=== PATIENT | female | born 1955 | race Caucasian/White ===

== ENCOUNTER → 2019-03-23 | Outpatient (CLI) | payer OTHER ==
[~2019-03-23] MED LIST: FEXOFENADINE PO; MULVITMIND PO; RANI150 PO; Vitamin C100 M1 PO; Zofran Odt8 MG PO
[2019-03-25 16:06] LABS: HPV 16 Negative (Negative); HPV 18 Negative (Negative); HPV OTHER HR TYPES Negative (Negative)
== END | disposition home or self-care (01) ==
LOC: LAB 17:19 → LAB SHORT 17:19
PROVIDERS: Obstetrics & Gynecology Gynecology
DX: Z12.4 Encounter for screening for malignant neoplasm of cervix (principal)
CPT/HCPCS: 87624; G0123

== ENCOUNTER 2019-05-06 06:36 | Day surgery (SDC) | payer OTHER ==
[~2019-05-06] VITALS: Ht 162.6 cm; Wt 69.0 kg
[~2019-05-06 06:36] MED LIST changes: +CHOL10002 PO; +OMEG1CAP30 PO
--- NOTE | 2019-05-06 07:55 | NUR ---
05/06/19 0[address]my [address]iles DISCUSSION WITH DR SIU REGARDING PATIENT PRIOR PROCEDURE AND HAVING DIFFICULTY AFTERWARDS. PATIENT EXPRESSED TO ME HER BIGGEST PROBLEM WAS HER SORE THROAT AND FEELING OVER MEDICATED FOR A WEEK POST PROCEDURE. SHE WAS AWARE THAT SHE DID VOMIT DURING PROCEDURE. DR SIU ORDERED ZOFRAN GIVEN AT BEGINNING OF PROCEDURE TO HELP AVOID VOMITING. I EXPLAINED AT LENGTH TO PATIENT THAT PROPOFOL METABOLIZES VERY FAST AND IT COULD BE JUST DUE TO LENGTH OF PROCEDURE AND DIFFICULT POLYP REMOVAL THAT SHE HAD SOME DIFFICULTIES. ALL OF PATIENTS QUESTIONS WERE ANSWERED. WILL PROCEED WITH PROCEDURE USING PROPOFOL SEDATION
== END 2019-05-06 08:57 | disposition home or self-care (01) ==
LOC: ORSCSDS 06:36
PROVIDERS: Surgery
PROC: 0DBN8ZX Excision of Sigmoid Colon, Via Natural or Artificial Opening Endoscopic, Diagnostic (ICD-10-PCS; principal; 2019-05-06 08:00)
DX: Z12.11 Encounter for screening for malignant neoplasm of colon (principal); Z86.010 Personal history of colon polyps; D12.5 Benign neoplasm of sigmoid colon; K57.30 Diverticulosis of large intestine without perforation or abscess without bleeding; K21.9 Gastro-esophageal reflux disease without esophagitis; I10 Essential (primary) hypertension; Z87.891 Personal history of nicotine dependence; Z79.899 Other long term (current) drug therapy
CPT/HCPCS: 88305; J2405; J2704; J7120

== ENCOUNTER 2025-08-24 11:31 | Observation (INO) | payer MEDICARE ==
[~2025-08-24] VITALS: Ht 162.6 cm; Wt 65.8 kg
[2025-08-24] VITALS (11 sets, daily range): BP systolic 128–145; BP diastolic 65–80
[2025-08-24 12:02] LABS: BASOPHILS ABSOLUTE AUTO 0.03 K/mm3 (0.00-0.23); BASOPHILS PERCENT AUTO 0 % (0-2); EOSINOPHILS ABSOLUTE AUTO 0.04 K/mm3 (0.00-0.68); EOSINOPHILS PERCENT AUTO 0 % (0-6); Hematocrit 44.6 % (33.0-51.0); Hemoglobin 15.6 g/dL (11.5-16.0); IMMATURE GRAN ABSOLUTE AUTO 0.05 K/mm3 (0.00-0.10); IMMATURE GRAN PERCENT AUTO 0 % (0-1); LYMPHOCYTES ABSOLUTE AUTO 1.27 K/mm3 (0.84-5.20); LYMPHOCYTES PERCENT AUTO 9 % (21-46); MONOCYTES ABSOLUTE AUTO 0.76 K/mm3 (0.16-1.47); MONOCYTES PERCENT AUTO 6 % (4-13); Mean Corpuscular HGB Conc 35.0 g/dL (31.5-36.5); Mean Corpuscular Volume 86 fL (80-100); NEUTROPHILS ABSOLUTE AUTO 11.43 K/mm3 (1.96-9.15); NEUTROPHILS PERCENT AUTO 84 % (41-73); NRBC ABSOLUTE 0.00 K/mm3 (0.00-0.02); NRBC Auto 0.0 /100 WBC (0.0-0.2); Platelet Count 375 K/mm3 (150-400); RDW Coefficient Variation 12.8 % (11.7-14.2); RDW Standard Deviation 39.9 fL (35.1-46.3)
[2025-08-24] MEDS ORDERED: Morphine Sulfate 4 MG/1 ML Injection IV ONE (12:10)
[2025-08-24] MEDS ORDERED: NS 1,000 ML IV SCH (12:10)
[2025-08-24] MEDS ORDERED: Ondansetron HCl 2 MG / ML 2ML Vial IV ONE ×2 (12:10→14:20)
[2025-08-24 12:25] LABS: Alanine Aminotransfer (ALT/SGP 32.0 U/L (12-78); Albumin, Blood 4.1 g/dL (3.4-5.0); Albumin/Globulin Ratio 1.0 (0.8-1.8); Anion Gap 13.0 mmol/L (3-11); Aspartate Aminotrans (AST/SGOT 25.0 U/L (12-37); Bilirubin, Total 0.6 mg/dL (0.1-1.0); Blood Urea Nitrogen 12.0 mg/dL (8-24); CO2, Blood 24.0 mmol/L (21-32); Calcium, Blood 9.5 mg/dL (8.5-10.1); Chloride, Blood 100.0 mmol/L (98-108); Creatinine, Blood 0.73 mg/dL (0.40-1.00); Globulin, Blood 4.2 g/dL (2.2-4.0); Glucose, Blood 135.0 mg/dL (70-99); Potassium, Blood 3.7 mmol/L (3.5-5.5); Sodium, Blood 133.0 mmol/L (136-145); Total Protein, Blood 8.3 g/dL (6.4-8.2)
[2025-08-24] MEDS ORDERED: Midazolam HCl 1MG / ML 2ML Vial ONE (14:10)
[2025-08-24] MEDS ORDERED: Bupivacaine 0.5% HCl 5 MG/ML 30MLVIAL ONE (14:10)
[2025-08-24] MEDS ORDERED: FentaNYL Citrate 50 MCG/ML 2 ML Injection ONE (14:11)
[2025-08-24] MEDS ORDERED: Rocuronium Bromide 10 MG/ML 5ML Injection IV ONE (14:11)
[2025-08-24] MEDS ORDERED: FentaNYL Citrate 50 MCG/ML 2 ML Injection IV PRN ×3 (14:15→14:55)
[2025-08-24] MEDS ORDERED: FLU VACC TS2025(65UP)/MF59C/PF 45 MCG/0.5 ML SYRINGE IM SCH (14:15)
[2025-08-24] MEDS ORDERED: Ondansetron HCl 2 MG / ML 2ML Vial IV PRN (14:20)
[2025-08-24] MEDS ORDERED: HYDROcodone 5-APAP 325 TAB PO PRN (14:20)
[2025-08-24] MEDS ORDERED: Ondansetron HCl 2 MG / ML 2ML Vial ONE (14:23)
[2025-08-24] MEDS ORDERED: CeFAZolin Sodium 2,000 MG in NS 100 ML IV SCH (14:25)
[2025-08-24] MEDS ORDERED: Dexamethasone Sod Phos 10 MG/ML 1ML VIAL ONE (14:46)
[2025-08-24] MEDS ORDERED: ePHEDrine Sulfate 50 MG/ML 1ML Injection ONE (14:52)
[2025-08-24] MEDS ORDERED: Albuterol 2.5 MG/3 ML VIAL INH PRN (14:55)
[2025-08-24] MEDS ORDERED: HYDROmorphone HCl/Pf 1MG SYR IV PRN ×2 (14:55)
[2025-08-24] MEDS ORDERED: Prochlorperazine Edisylate 10 mg Vial IV PRN (14:55)
[2025-08-24] MEDS ORDERED: HYDROmorphone HCl/Pf 1MG SYR ONE (15:07)
[2025-08-24] MEDS ORDERED: Sugammadex Sodium 200 MG/2ML SDV (100 MG/ML) ONE (15:49)
--- NOTE | 2025-08-24 18:12 | NUR ---
PT ARRIVED IN THE ROOM 231 FROM PACU POST HERNIA AND SBO REPAIR. PT HAS DRESSING ON LEFT GROIN CDI. ABD TENDER TO TOUCH. PT WAS TRANSFERRED VIA SLIDE SHEET. VITALS STABLE. SBP 140'S, SATS ABOVE 95% ON RA, AFEBRILE. PT WAS NAUSEATED DURING TRANSFER FROM PACU. PT WAS GIVEN COMPAZINE PER MELT SUPERINTENDANT. PT NOW SETTLED IN BED NAUSEA HAS GOTTEN BETTER. SIGNIFICANT OTHER AT THE BEDSIDE AWARE OF THE PLAN OF CARE. LR RUNNING AT 100MLS/HR. PT ON CLEAR LIQUID DIET, HAD A LITTLE SIP OF WATER TOLERATING WELL. PT RESTING IN BED AT THIS TIME. CALL LIGHTS IN REACH WILL REPORT TO ONCOMING SHIFT
[2025-08-25] VITALS (8 sets, daily range): BP systolic 132–166; BP diastolic 68–81
[2025-08-25 05:41] LABS: BASOPHILS ABSOLUTE AUTO 0.02 K/mm3 (0.00-0.23); BASOPHILS PERCENT AUTO 0 % (0-2); EOSINOPHILS ABSOLUTE AUTO 0.01 K/mm3 (0.00-0.68); EOSINOPHILS PERCENT AUTO 0 % (0-6); Hematocrit 38.6 % (33.0-51.0); Hemoglobin 12.9 g/dL (11.5-16.0); IMMATURE GRAN ABSOLUTE AUTO 0.04 K/mm3 (0.00-0.10); IMMATURE GRAN PERCENT AUTO 0 % (0-1); LYMPHOCYTES ABSOLUTE AUTO 2.00 K/mm3 (0.84-5.20); LYMPHOCYTES PERCENT AUTO 16 % (21-46); MONOCYTES ABSOLUTE AUTO 1.05 K/mm3 (0.16-1.47); MONOCYTES PERCENT AUTO 8 % (4-13); Mean Corpuscular HGB Conc 33.4 g/dL (31.5-36.5); NEUTROPHILS ABSOLUTE AUTO 9.75 K/mm3 (1.96-9.15); NEUTROPHILS PERCENT AUTO 76 % (41-73); NRBC ABSOLUTE 0.00 K/mm3 (0.00-0.02); NRBC Auto 0.0 /100 WBC (0.0-0.2); Platelet Count 277 K/mm3 (150-400); RDW Coefficient Variation 13.2 % (11.7-14.2); RDW Standard Deviation 43.4 fL (35.1-46.3)
[2025-08-25 05:45] LABS: Mean Corpuscular Volume 92 fL (80-100)
[2025-08-25 06:20] LABS: Anion Gap 8.0 mmol/L (3-11); Blood Urea Nitrogen 13.0 mg/dL (8-24); CO2, Blood 25.0 mmol/L (21-32); Calcium, Blood 8.3 mg/dL (8.5-10.1); Chloride, Blood 108.0 mmol/L (98-108); Creatinine, Blood 0.62 mg/dL (0.40-1.00); Glucose, Blood 96.0 mg/dL (70-99); Potassium, Blood 3.8 mmol/L (3.5-5.5); Sodium, Blood 137.0 mmol/L (136-145)
--- NOTE | 2025-08-25 06:42 | NUR ---
SHIFT SUMMARY NOC. PT POD 1 FOR HERNIA REPAIR. PT'S DRESSING C/D/I. PT TOLERATING CLEARS AND VOIDING URINE. PT MILDLY NAUSEAOUS INTERMITTENTLY, BUT REPORTED WAS TOLERABLE AND DECLINED MED FOR NAUSEA WHEN OFFERED. PT MEDICATED FOR PAIN 2 TIMES WITH ORAL NORCO. PT REPORTED RELIEF OF SX. PT MAKES NEEDS KNOWN, CALL LIGHT IN REACH.
--- NOTE | 2025-08-25 16:59 | NUR ---
SHIFT SUMMARY NO ACUTE EVENTS THIS SHIFT. PATIENT ALERT AND ORIENTED X4. INDEPENDENT IN ROOM. COMMUNICATES NEEDS EFFECTIVELY. VSS. EPISODES OF HTN - SBP 160s. ASYMPTOMATIC, DENIES CHEST PAIN OR PRESSURE. ASSOCIATED W/ PAIN PER PATIENT. POD 1 HERNIA REPAIR. MANAGING PAIN PER EMAR. X1 INCISION SITE LLQ/GROIN C/D/I. TOLERATING ADVANCED DIET. PASSING FLATUS. CALL LIGHT IN REACH.
[2025-08-26 00:55] VITALS: BP 150/80
[2025-08-26 04:43] VITALS: BP 157/78
--- NOTE | 2025-08-26 06:01 | NUR ---
SHIFT SUMMARY NOC. PT POD 2 FOR HERNIA REPAIR. DRESSING IN LEFT SIDE GROIN IS C/D/I. PT TOLERATING DIET ORDERED. PT VOIDING URINE AND AMBULATING WELL INDEPENDENTLY. PT A/O X4. PT MEDICATED FOR PAIN 2 TIMES THIS SHIFT WITH ORAL NORCO. PT VERBALIZED FRUSTRATION THIS SHIFT WITH NOISE IN NEXT ROOM. THIS RN OFFERED EAR PLUGS, A FAN, MUSIC THERAPY OR TV NOISE TO ASSIST, PT DECLINED INTERVENTIONS. DISCUSSED WITH DOUBLER OPERATOR AND PRIMARY RN FOR PT IN NEXT ROOM OVER. PT APPRECIATIVE FOR OFFERED INTERVENTIONS. PT MAKES NEEDS KNOWN, CALL LIGHT IN REACH.
[2025-08-26 07:37] VITALS: BP 146/84
[2025-08-26] MEDS ORDERED: HYDR1TAB94 PO (12:15)
--- NOTE | 2025-08-26 12:46 | NUR ---
DISCHARGE NOTE PATIENT POD 2 HERNIA REPAIR. VSS. PAIN MANAGED W/ PRESCRIBED MEDICATION. HARD SCRIPT W/ PATIENT. TOLERATING REGULAR DIET. PASSING FLATUS. DENIES N/V. VOIDING. INCISION SITE L GROIN/LOWER ABD C/D/I. WRITTEN AND VERBAL EDUCATION PROVIDED - PATIENT STATES UNDERSTANDING. IV REMOVED. PERSONAL BELONGINGS W/ PATIENT. PATIENTs SPOUSE TO TRANSPORT HER HOME. PATIENT TRANSFERRED TO PERSONAL VEHICLE VIA .
== END 2025-08-26 12:45 | disposition home or self-care (01) ==
LOC: ER 11:31 → SURS 11:32 → ER 14:05 → SURS 14:05
PROVIDERS: Emergency Medicine; ADMIT Surgery
PROC: 0YU60JZ Supplement Left Inguinal Region with Synthetic Substitute, Open Approach (ICD-10-PCS; principal; 2025-08-24 14:15)
DX: K40.30 Unilateral inguinal hernia, with obstruction, without gangrene, not specified as recurrent (principal); Z87.891 Personal history of nicotine dependence; Z90.11 Acquired absence of right breast and nipple; Z91.018 Allergy to other foods; Z91.011 Allergy to milk products; Z91.040 Latex allergy status; R10.30 Lower abdominal pain, unspecified; K40.90 Unilateral inguinal hernia, without obstruction or gangrene, not specified as recurrent
CPT/HCPCS: 36415; 74177; 80048; 80053; 83605; 85025; 94760; 96374; 96375; 99284; A9270; C1781; J0690; J0780; J1100; J1171; J2250; J2270; J2405; J2704; J3010; J7030; J7120; Q9967

== ENCOUNTER 2025-10-20 06:59 | Day surgery (SDC) | payer MEDICARE ==
[~2025-10-20] VITALS: Ht 160 cm; Wt 68.0 kg
[2025-10-20] VITALS (18 sets, daily range): BP systolic 109–176; BP diastolic 57–104
[~2025-10-20 06:59] MED LIST changes: +HYDR1TAB94 PO
[2025-10-20] MEDS ORDERED: Bentyl20 MG PO (08:32)
--- NOTE | 2025-10-20 08:41 | NUR ---
10/20/25 0841 Bonny Main History, Chart, Medications and Allergies reviewed before start of procedure. 3-LEAD EKG REVIEWED WITH PHYSICIAN PRIOR TO START OF PROCEDURE. MONITOR INTACT WITH CONTINUOUS PULSE OXIMETRY, CONTINUOUS END TITAL CO2, 3-LEAD EKG AND INTERMITTENT BLOOD PRESSURE. PATIENT DETERMINED TO BE ASA APPROPRIATE FOR PROPOFOL SEDATION PRIOR TO START OF PROCEDURE BY
[2025-10-20] MEDS ORDERED: Ondansetron HCl 2 MG / ML 2ML Vial ONE (08:45)
--- NOTE | 2025-10-20 08:58 | NUR ---
History, Chart, Medications and Allergies reviewed before start of procedure. Pre-Op teaching done. Pt verbalizes understanding. Patient confirms NPO status and agrees with scheduled surgery. Patient states colon prep results clear. Patient States Post-Procedure ride home has been arranged.
== END 2025-10-20 23:00 | disposition home or self-care (01) ==
LOC: ORSCMMR 06:59 → ORD 08:30 → ORSCMMR 08:30
PROVIDERS: Surgery
PROC: 0DJD8ZZ Inspection of Lower Intestinal Tract, Via Natural or Artificial Opening Endoscopic (ICD-10-PCS; principal; 2025-10-20 08:30)
DX: Z12.11 Encounter for screening for malignant neoplasm of colon (principal); Z86.0101 Personal history of adenomatous and serrated colon polyps; K57.30 Diverticulosis of large intestine without perforation or abscess without bleeding; K21.9 Gastro-esophageal reflux disease without esophagitis; Z85.3 Personal history of malignant neoplasm of breast; Z79.899 Other long term (current) drug therapy
CPT/HCPCS: J2405; J2704; J7120